=== PATIENT | female | born 1950 | race Caucasian/White ===

== ENCOUNTER 2016-08-30 06:42 | Observation (INO) | payer MEDICARE ==
[~2016-08-30] VITALS: Ht 167.6 cm; Wt 69.1 kg
[~2016-08-30 06:42] MED LIST: ASCO100016 PO; CALC1TAB12 PO; DIAZ10TA PO; ESTRTAB12 PO; GLUCTAB32 PO; LUMBAR BACK BRA1 MIS; ROBA500T PO; TRAM50TA PO; TRIA37.5 PO; TURM1CAP6 PO
[2016-08-30] MEDS ORDERED: HYDROmorphone HCL PF 2 MG/ML VIAL ONE (06:55)
[2016-08-30] MEDS ORDERED: ACETAMINOPHEN 1000 MG/100 ML VIAL IV ONE (06:55)
[2016-08-30] MEDS ORDERED: MIDAZOLAM HCL 2 MG/2 ML VIAL ONE (06:55)
[2016-08-30] MEDS ORDERED: KETAMINE HCL 500 MG/5 ML VIAL ONE (07:26)
[2016-08-30] MEDS ORDERED: SODIUM CHLORID 0.9% 500 ML IV PRN (07:30)
[2016-08-30] MEDS ORDERED: POVIDONE IODINE 5% (ANTISEPSIS KIT) 4 APPLICATIONS EACH NARE PRN (07:30)
[2016-08-30] MEDS ORDERED: CHLORHEXIDINE GLUCONATE 2 % 1 PACK (2 CLOTHS) TOPICAL PRN (07:30)
[2016-08-30] MEDS ORDERED: LACTATED RINGER'S 1000 ML IV PRN (07:30)
[2016-08-30] MEDS ORDERED: METOPROLOL TARTRATE 25 MG TAB PO PRN (07:30)
[2016-08-30] MEDS ORDERED: ceFAZolin 1,000 MG/NS 100 ML IV SCH ×2 (07:30)
[2016-08-30] MEDS ORDERED: LACTATED RINGER'S 1000 ML INJ 1,000 ML IV SCH (07:30)
[2016-08-30] MEDS ORDERED: INSULIN HUMAN REGULAR 1,000 UNITS/10 ML VIAL SQ PRN (07:30)
[2016-08-30 07:33] VITALS: BP 157/83; PULSE 74; RESP 18; TEMP 98.9; O2SAT 98
[2016-08-30] MEDS ORDERED: PROPOFOL 200 MG/20 ML AMP IV ONE (07:50)
[2016-08-30] MEDS ORDERED: ONDANSETRON HCL 4 MG/2 ML VIAL IV PUSH ONE (07:50)
[2016-08-30] MEDS ORDERED: LACTATED RINGER'S 1000 ML INJ 2,000 ML IV ONE (07:50)
[2016-08-30] MEDS ORDERED: PHENYLEPH/NS 1000 MCG/10 ML SYR IV ONE (07:50)
[2016-08-30] MEDS ORDERED: FAMOTIDINE 20 MG/2 ML VIAL ONE (08:07)
[2016-08-30] MEDS ORDERED: GENTAMICIN SULFATE 80 MG/2 ML VIAL ONE (08:12)
[2016-08-30] MEDS ORDERED: GELFOAM SIZE 100 ONE (08:12)
[2016-08-30] MEDS ORDERED: THROMBIN (TOPICAL) 5,000 UNIT VIAL ONE (08:12)
[2016-08-30] MEDS ORDERED: LIDOCAINE 2%/EPINEPHrine 1:100,000 30ML MDV ONE (08:15)
[2016-08-30] MEDS ORDERED: ceFAZolin INJ 1,000 MG VIAL IV ONE (12:20)
[2016-08-30 13:50] LABS: AUTOMATED NEUTROPHIL # 5.7 TH/MM3 (1.8-7.7); BASOPHIL % 0.2 % (0.0-2.0); EOSINOPHIL % 0.1 % (0.0-4.0); HEMATOCRIT 32.5 % (35.0-46.0); HEMO FLAGS DIFF FINAL; LYMPH % 8.9 % (9.0-44.0); LYMPHOCYTE # 0.6 TH/MM3 (1.0-4.8); MEAN CELL VOLUME 92.9 FL (80.0-100.0); MEAN CORPUSCULAR HEMOGLOBIN 31.5 PG (27.0-34.0); MONO % 1.4 % (0.0-8.0); NEUT % 89.4 % (16.0-70.0); PLATELET COUNT 150 TH/MM3 (150-450); WHITE BLOOD COUNT 6.3 TH/MM3 (4.0-11.0)
[2016-08-30 14:01] LABS: APTT (PATIENT) 28.8 SEC (24.3-30.1); PROTHROMBIN TIME - PATIENT 11.6 SEC (9.8-11.6)
[2016-08-30] MEDS ORDERED: DIAZEPAM 10 MG TAB PO PRN (14:30)
[2016-08-30] MEDS ORDERED: METHOCARBAMOL 500 MG TAB PO PRN (14:30)
[2016-08-30] MEDS ORDERED: BENZOCAINE 6 MG/MENTHOL 10 MG LOZENGE BUCCAL PRN (14:45)
[2016-08-30] MEDS ORDERED: SODIUM CHLORIDE 0.9% FLUSH 5 ML FLUSH IVF PRN (14:45)
[2016-08-30] MEDS ORDERED: traMADol HCL 50 MG TAB PO PRN (14:45)
[2016-08-30] MEDS ORDERED: HYDROmorphone HCL PF 1 MG/ML VIAL IV PRN (14:45)
[2016-08-30] MEDS ORDERED: NALOXONE HCL 0.4 MG/ML AMP IV PRN (14:45)
--- NOTE | 2016-08-30 14:46 | PD.OP ---
Operative Report Date of Surgery: Aug 30, 2016 Preoperative Diagnosis: (1) Cervical spinal stenosis (2) Cervical disc disease with myelopathy 1. Cervical spondylosis and degenerative disc disease 2. Severe C5 6 stenosis 3. Cervical myelopathy Postoperative Diagnosis: (1) Cervical spinal stenosis (2) Cervical disc disease with myelopathy 1. Cervical spondylosis and degenerative disc disease 2. Severe C5 6 stenosis 3. Cervical myelopathy Procedure: 1. C5 6 anterior cervical discectomy, resection posterior osteophyte-micro- technique 2. C5-6 anterior cervical interbody fusion with composite allograft bone 3. C5-6 anterior cervical instrumentation Anesthesia: Gen. endotracheal Surgeon: Jose Dixon Special Needs Tutor(s): Janeth Cristina Operation and Findings: Procedure in detail: The patient was brought into the operating room and positioned in supine position on the 3080 table with the head and neck in neutral position. Aaron catheter was placed. Lines were established by Anesthesia. Gen. endotracheal anesthesia was induced without difficulty, taking care not to significantly flex or extend the patient's neck during intubation and positioning. Leads for intraoperative neuro monitoring were placed and a baseline study obtained. All extremities were appropriately padded. The neck and upper chest were shaved with clippers and sterilely prepped and draped. Appropriate timeout procedure was performed with all personnel present and in agreement 1% Xylocaine with epinephrine was used for local infiltration over the incision site which was made transversely at the left C5 level and carried sharply down through the platysma muscle. The exposure was continued medial to the sternocleidomastoid muscle and carotid artery, and lateral to the trachea and esophagus. The prevertebral fascia was elevated away from the anterior longitudinal ligament with a Kitner sponge. The longus coli muscle on each side was elevated with the Holguin elevator. The self-retaining retractor was placed with the blades beneath the longus coli muscle on each side. The appropriate levels were confirmed with intraoperative C-arm and preoperative imaging studies. The microscope was brought into place and used for the remainder of the procedure including the closure. The 14 mm distraction pins were used as needed for gentle distraction during the procedure. The procedure was performed at the C5-6 level At the C5-6 level the anterior osteophyte was resected with the Leksell rongeur. The disc and annulus was incised with a 15 blade knife and discectomy performed with pituitary biopsy forceps and straight and angled curettes. The TPS drill with the 5 mm barrel bur was used to decorticate the endplates and removed the majority of the osteophyte along the anterior spinal canal as well as the right and left uncovertebral joint. The thin ligament dissector was used to free up the posterior annulus and ligament from the vertebral body margin. The remainder of the resection of the posterior annulus and ligament as well as the posterior osteophyte and bilateral uncovertebral joint was performed with the 2 and 3 mm thin footplate Kerrison rongeurs. A component of herniated nucleus pulposus was encountered posterior to the annulus and was lifted away from the thecal sac with the thickened ligament dissector and removed. Significant posterior osteophyte was encountered and extensively removed. The posterior vertebral bodies were undercut with the Kerrison rongeur and the TPS drill with the 4 mm jarad bur as needed to fully decompress the anterior spinal canal. The appropriate size 5 x 7 mm lordotic V G2 bone graft was then placed at each level with a good fit of the graft. The blunt nerve hook was used to probe beneath the bone graft to ensure that there was no impingement on the thecal sac or exiting nerve roots. The appropriate size Precision anterior cervical plate was then chosen and the bone screws were placed with the 14 mm fixed screws at the caudal most level and the 14 mm variable screws at the cephalad level of the decompression. The screws were firmly secured and the locking cams engaged. The entire construct was checked with intraoperative C-arm and felt to be satisfactory. The 10 Lao drain was brought out through a small incision in the left lower neck and secured to the skin with nylon suture and attached to sterile suction. The closure was performed with 3-0 Vicryl running for the platysma and interrupted for the subcutaneous closure, with 4-0 Vicryl running for the subcuticular closure. A dressing of sterile Mastisol, Steri-Strips, and Primapore dressing was placed. The patient was placed into a cervical collar, and taken to recovery room in stable condition. All counts were correct at the end of the case. Estimated blood loss was 500 cc No specimen was sent to pathology. Intraoperative neuro monitoring remained stable during the procedure. Jose Dixon MD Aug 30, 2016 14:46
--- NOTE | 2016-08-30 14:58 | RADRPT ---
EXAM DATE/TIME: 08/30/2016 09:43 [place] COMPARISON: No previous studies available for comparison. INDICATIONS : Post-op C5-C6 anterior cervical fusion. MEDICAL HISTORY : None. SURGICAL HISTORY : None. ENCOUNTER: Initial ACUITY: 1 day PAIN SCORE: Non-responsive. LOCATION: neck FINDINGS: A single single lateral view of the cervical spine is recorded digitally cross table using C-arm afte r placement of a C5-C6 intracervical plate. CONCLUSION: Intraoperative image. Prabhu Cedeño MD on August 30, 2016 at 14:55 Board Certified Radiologist. This report was verified electronically.
[2016-08-30] MEDS: D5-1/2 NS + KCL 20 MEQ INJ 1,000 ML IV SCH (15:30)
[2016-08-30] MEDS ORDERED: DO NOT ADM ANY ANTICOAGULANT DRUGS PRN (16:00)
[2016-08-30 16:45] VITALS: BP 139/75; PULSE 80; RESP 18; TEMP 97.8; O2SAT 98
[2016-08-30 20:00] VITALS: BP 149/80; PULSE 87; RESP 16; TEMP 96.9; O2SAT 95
[2016-08-30] MEDS ORDERED: HYDROCORTISONE 1% LOTN 120 ML BTL TOPICAL PRN (21:00)
[2016-08-30] MEDS: SODIUM CHLORIDE 0.9% FLUSH 5 ML FLUSH IVF SCH (21:00)
[2016-08-30] MEDS ORDERED: diphenhydrAMINE HCL 50 MG CAP PO PRN (21:00)
[2016-08-30] MEDS: ACETAMINOPHEN/HYDROcodone 325 MG/10 MG TAB PO PRN (23:57)
[2016-08-31 00:10] VITALS: BP 155/84; PULSE 90; RESP 16; TEMP 98.2; O2SAT 94
[2016-08-31] MEDS: D5-1/2 NS + KCL 20 MEQ INJ 1,000 ML IV SCH ×2 (00:31→08:39)
[2016-08-31 04:05] VITALS: BP 151/84; PULSE 77; RESP 16; TEMP 97.1; O2SAT 97
[2016-08-31] MEDS: ACETAMINOPHEN/HYDROcodone 325 MG/10 MG TAB PO PRN ×2 (04:36→13:29)
[2016-08-31 07:49] LABS: AUTOMATED NEUTROPHIL # 10.1 TH/MM3 (1.8-7.7); BASOPHIL % 0.1 % (0.0-2.0); HEMATOCRIT 37.8 % (35.0-46.0); HEMO FLAGS DIFF FINAL; LYMPH % 10.5 % (9.0-44.0); LYMPHOCYTE # 1.3 TH/MM3 (1.0-4.8); MEAN CELL VOLUME 93.3 FL (80.0-100.0); MEAN CORPUSCULAR HEMOGLOBIN 30.7 PG (27.0-34.0); MEAN CORPUSCULAR HGB CONC 32.9 % (32.0-36.0); MONO % 5.7 % (0.0-8.0); NEUT % 83.7 % (16.0-70.0); PLATELET COUNT 166 TH/MM3 (150-450); RED BLOOD COUNT 4.05 MIL/MM3 (4.00-5.30); RED CELL DISTRIBUTION WIDTH 12.1 % (11.6-17.2); WHITE BLOOD COUNT 12.1 TH/MM3 (4.0-11.0)
[2016-08-31 08:00] VITALS: BP 159/79; PULSE 74; RESP 18; TEMP 97.3; O2SAT 98
[2016-08-31 08:15] LABS: BICARBONATE 28.5 MEQ/L (21.0-32.0); POTASSIUM 3.6 MEQ/L (3.5-5.1)
[2016-08-31] MEDS: SODIUM CHLORIDE 0.9% FLUSH 5 ML FLUSH IVF SCH (08:34)
[2016-08-31] MEDS ORDERED: TRIAMTERENE/HCTZ 37.5 MG/25 MG TAB PO SCH (09:00)
[2016-08-31] MEDS ORDERED: CALCIUM/VITAMIN D 250 MG/125 U TAB PO SCH (09:00)
[2016-08-31 09:17] VITALS: O2SAT 98
[2016-08-31] MEDS ORDERED: HYDR-3583 PO (10:43)
[2016-08-31 12:00] VITALS: BP 161/79; PULSE 80; RESP 18; TEMP 96.6; O2SAT 99
--- NOTE | 2016-08-31 12:25 | HHI.NSPN ---
(Wellington Canales) History Chief Complaint: Some pain to the surgical site, sore throat and slight hoarseness. (Wellington Canales) Interval History 08/29: Patient with history of severe C5-6 stenosis with myelopathy. She presented to [facility] for a C5-6 ACDF. Post-operatively she went to a regular med/surg floor. 08/31: The patient is doing well this morning when seen with Dr Dixon. She has some tenderness to the surgical site. She still has pain to the back where she had the compression fracture. (Wellington Canales) System Review Comments Constitutional: Patient denies any fever or chills. HEENT: Patient does have some sore throat and slight hoarseness. Neck: Patient has some pain to the surgical site. Respiratory: Patient denies any shortness of breath or productive cough. She does state that she did have some coughing last night. Cardiovascular: Patient denies any chest pain, palpitations or irregular heartbeat. Gastrointestinal: Patient denies any abdominal pain, nausea, vomiting or bowel incontinence. Genitourinary: Patient denies any urinary incontinence. Musculoskeletal: Patient does complain of pain to where her compression fracture is. Neurological: Patient denies any headache, dizziness, numbness or tingling. ( Wellington Caanles) Exam Results Vital Signs Date Time Temp Pulse Resp B/P Pulse Ox O2 Delivery O2 Flow Rate FiO2 08/31/16 09:17 98 21 08/31/16 08:00 97.3 74 18 159/79 08/30/16 16:30 Nasal Cannula 2 Intake and Output 08/30/16 08/30/16 08/31/16 08:00 16:00 00:00 Intake Total 2500 ml 1209 ml Output Total 1460 ml 1360 ml Balance 1040 ml -151 ml (Wellington Canales) Physical Examination General: Awake & alert, readily interacts, normal affect, NAD. HEENT: Normocephalic, atraumatic. Neck: Midline cervical spine NTTP. Left anterior neck surgical incision mildly TTP, TIA drain to bulb suction w/serosanguinous drainage, dressing intact and w/ o any shadowing. Respiratory: CTAB w/o W/R/R, equal excursion, non-laboured, on RA. Cardiovascular: S1S2 w/RRR w/o M/G/R, radial & pedal pulses 2+ bilaterally, cap refill < 2 sec, no pedal edema. Gastrointestinal: Abdomen soft, nontender, positive bowel sounds. Musculoskeletal: CHUNG w/o difficulty. Ecchymosis of indeterminate ages noted to BUE. Back NTTP with light touch. Neurological: AAOx3 Speech clear & appropriate Sensation grossly intact to light touch all extremities Motor strength 5/5 to all flexion & extension muscle groups (Wellington Canales) Lab, Micro, Other Results Allergies Coded Allergies Type Severity Reaction Last Updated Verified Doxycycline Allergy Unknown 08/30/16 Yes Recent Impressions Cervical Spine X-Ray 08/30/16 0000 Signed Impressions: Service Date/Time: Tuesday, August 30, 2016 09:43 - CONCLUSION: Intraoperative image. Prabhu Cedeño MD 08/29//5/176/6///176/7/ 06:00 18:00 06:00 18:00 06:00 18:00 Intake Total 2500 ml 1209 ml 720 ml Output Total 1460 ml 1360 ml 1450 ml Balance 1040 ml -151 ml -730 ml Intake Oral 480 ml 720 ml IV Total 100 ml 729 ml Other 2400 ml Output Urine Total 950 ml 1350 ml 1450 ml Drainage Total 10 ml 10 ml Estimated Blood Loss 500 ml # Bowel Movements 0 0 Laboratory Tests Test 08/30/16 08/31/16 08/31/16 13:30 06:00 06:50 White Blood Count 6.3 TH/MM3 12.1 TH/MM3 Red Blood Count 3.50 MIL/MM3 4.05 MIL/MM3 Hemoglobin 11.0 GM/DL 12.5 GM/DL Hematocrit 32.5 % 37.8 % Mean Corpuscular Volume 92.9 FL 93.3 FL Mean Corpuscular Hemoglobin 31.5 PG 30.7 PG Mean Corpuscular Hemoglobin 34.0 % 32.9 % Concent Red Cell Distribution Width 12.0 % 12.1 % Platelet Count 150 TH/MM3 166 TH/MM3 Mean Platelet Volume 8.6 FL 9.7 FL Neutrophils (%) (Auto) 89.4 % 83.7 % Lymphocytes (%) (Auto) 8.9 % 10.5 % Monocytes (%) (Auto) 1.4 % 5.7 % Eosinophils (%) (Auto) 0.1 % 0.0 % Basophils (%) (Auto) 0.2 % 0.1 % Neutrophils # (Auto) 5.7 TH/MM3 10.1 TH/MM3 Lymphocytes # (Auto) 0.6 TH/MM3 1.3 TH/MM3 Monocytes # (Auto) 0.1 TH/MM3 0.7 TH/MM3 Eosinophils # (Auto) 0.0 TH/MM3 0.0 TH/MM3 Basophils # (Auto) 0.0 TH/MM3 0.0 TH/MM3 CBC Comment DIFF FINAL DIFF FINAL Differential Comment Prothrombin Time 11.6 SEC Prothromb Time International 1.0 RATIO Ratio Activated Partial 28.8 SEC Thromboplast Time Fibrinogen 223 mg/dL Blood Type O NEGATIVE Antibody Screen NEGATIVE Sodium Level 143 MEQ/L Potassium Level 3.6 MEQ/L Chloride Level 105 MEQ/L Carbon Dioxide Level 28.5 MEQ/L Anion Gap 10 MEQ/L Blood Urea Nitrogen 13 MG/DL Creatinine 0.81 MG/DL Estimat Glomerular Filtration 71 ML/MIN Rate Random Glucose 117 MG/DL Calcium Level 9.0 MG/DL Vital Signs Date Time Temp Pulse Resp B/P Pulse Ox O2 Delivery O2 Flow Rate FiO2 08/31/16 09:17 98 21 08/31/16 08:00 97.3 74 18 159/79 98 08/31/16 04:05 97.1 77 16 151/84 97 08/31/16 00:10 98.2 90 16 155/84 94 08/30/16 20:00 96.9 87 16 149/80 95 08/30/16 16:45 97.8 80 18 139/75 98 08/30/16 16:30 82 16 130/67 98 Nasal Cannula 2 08/30/16 15:45 98.8 78 16 135/65 99 Nasal Cannula 2 08/30/16 15:30 79 17 124/62 100 Nasal Cannula 2 08/30/16 15:15 81 16 133/69 99 Nasal Cannula 2 08/30/16 15:00 87 16 131/66 99 Nasal Cannula 2 08/30/16 14:45 89 16 132/65 99 Nasal Cannula 2 08/30/16 14:30 91 15 134/62 99 Nasal Cannula 2 08/30/16 14:25 98.7 92 14 138/68 99 Nasal Cannula 2 08/30/16 07:33 98.9 74 18 157/83 98 (Wellington Canales) Medical Decision Making Impression and Plan Impression: (1) Cervical spinal stenosis (2) Cervical disc disease with myelopathy 1. Cervical spondylosis and degenerative disc disease 2. Severe C5 6 stenosis 3. Cervical myelopathy POD #1 () s/p: 1. C5 6 anterior cervical discectomy, resection posterior osteophyte-micro- technique 2. C5-6 anterior cervical interbody fusion with composite allograft bone 3. C5-6 anterior cervical instrumentation Persistent mid back pain Plan: Advance diet to soft mechanical D/C TIA drain Will discharge home this afternoon (Wellington Canales) Attending Statement I have personally seen and examined the patient on the date of this note. Pertinent documentation and study results have been reviewed by the undersigned. I have personally developed the treatment plan and performed medical decision making. Agree with findings, exam, and treatment plan as noted above. Patient eating breakfast comfortably. No significant dysphagia or hoarseness of voice. Incision dry and intact. Mild drain output. Upper and lower extremity sensory motor exam normal Discussed with patient Discharge home today Signs and symptoms to watch for discussed (Jose Dixon MD) Wellington Canales Aug 31, 2016 12:25 Jose Dixon MD Aug 31, 2016 18:14
--- NOTE | 2016-08-31 13:11 | HHI.DCPOC ---
Discharge Care Plan Diagnosis: (1) Cervical spinal stenosis (2) Cervical disc disease with myelopathy Your Health Problems Are: Incision/Drains Loss of Movements Goals to Promote Your Health * To prevent worsening of your condition and complications * To maintain your health at the optimal level Directions to Meet Your Goals Take your medications as prescribed Follow your dietary instruction Follow activity as directed Keep your appointments as scheduled Take your immunizations and boosters as scheduled If your symptoms worsen call your PCP, if no PCP go to Urgent Care Center or Emergency Room Smoking is Dangerous to Your Health. Avoid second hand smoke Call the 24-hour hour crisis hotline for domestic abuse at Wear the cervical collar when active. When in bed or sitting still you may have the collar off. You may drive using your mirrors but no turning of your head. No lifting more than 5 pounds, pulling or other strenuous activity. Keep the dressing to the surgical site clean & dry for the next 7 days. You may shower but cover it with plastic to prevent it from getting wet. If it does get wet dry it gently with a hairdryer. After the 7 days you may remove the outer dressing but leave the steri-strips in place. Let them fall off as you shower. Avoid any products containing aspirin or NSAIDs (ibuprofen, naproxen, Naprosyn, Aleve, Advil, Motrin, etc.). Wellington Canales Aug 31, 2016 13:11 Jose Dixon MD Aug 31, 2016 18:12
--- NOTE | 2016-08-31 13:18 | HHI.DS ---
Wellington Canales [facility] 08/31/16 1318: Discharge Summary Admission Date Aug 30, 2016 at 14:39 Discharge Date: Aug 31, 2016 Admitting Diagnosis (1) Cervical spinal stenosis Diagnosis: Principal ICD Code: M48.02 (2) Cervical disc disease with myelopathy Diagnosis: Secondary ICD Code: M50.00 Procedures : 1. C5 6 anterior cervical discectomy, resection posterior osteophyte-micro- technique 2. C5-6 anterior cervical interbody fusion with composite allograft bone 3. C5-6 anterior cervical instrumentation CBC/BMP: 08/31/16 0650 08/31/16 0600 Significant Findings Laboratory Tests Test 08/30/16 08/31/16 08/31/16 13:30 06:00 06:50 Red Blood Count 3.50 MIL/MM3 (4.00-5.30) Hemoglobin 11.0 GM/DL (11.6-15.3) Hematocrit 32.5 % (35.0-46.0) Neutrophils (%) (Auto) 89.4 % 83.7 % (16.0-70.0) (16.0-70.0) Lymphocytes (%) (Auto) 8.9 % (9.0-44.0) Lymphocytes # (Auto) 0.6 TH/MM3 (1.0-4.8) Fibrinogen 223 mg/dL (227-377) Estimat Glomerular Filtration 71 ML/MIN (>89) Rate Random Glucose 117 MG/DL (74-106) White Blood Count 12.1 TH/MM3 (4.0-11.0) Neutrophils # (Auto) 10.1 TH/MM3 (1.8-7.7) Hospital Course Patient presented to [facility] on to have a C5-6 ACDF due to severe cervical stenosis and myelopathy. Post-operatively she was admitted to a regular room. She did well while hospitalised and was tolerating a diet, ambulating with standby assistance, and her pain was controlled. She was therefore discharged home the afternoon of . Pt Condition on Discharge: Good Discharge Disposition: Discharge Home Discharge Instructions DIET: Follow Instructions for: Soft Diet (for the next couple weeks) ACTIVITIES You can perform: Weight Bearing As Toribio, Shower/Bath Activities to Avoid: Lifting/Bending, Strenuous Activity Additional Information Wear the cervical collar when active. When in bed or sitting still you may have the collar off. You may drive using your mirrors but no turning of your head. No lifting more than 5 pounds, pulling or other strenuous activity. Keep the dressing to the surgical site clean & dry for the next 7 days. You may shower but cover it with plastic to prevent it from getting wet. If it does get wet dry it gently with a hairdryer. After the 7 days you may remove the outer dressing but leave the steri-strips in place. Let them fall off as you shower. Avoid any products containing aspirin or NSAIDs (ibuprofen, naproxen, Naprosyn, Aleve, Advil, Motrin, etc.). Jose Dixon MD 08/31/16 1815: Discharge Summary CBC/BMP: 08/31/16 0650 08/31/16 0600 Attending Statement Agree with above discharge summary Wellington Canales Aug 31, 2016 13:18 Jose Dixon MD Aug 31, 2016 18:15
== END 2016-08-31 17:18 | disposition home or self-care (01) ==
LOC: HSDC 06:42 → HSDI 14:39 → N06A 16:47
PROVIDERS: ADMIT Neurological Surgery; ATTEND Neurological Surgery
DX: M48.02 Spinal stenosis, cervical region (principal); M50.022 Cervical disc disorder at C5-C6 level with myelopathy; M47.12 Other spondylosis with myelopathy, cervical region; M25.78 Osteophyte, vertebrae; Z88.1 Allergy status to other antibiotic agents
CPT/HCPCS: 00600; 20930; 22551; 22845; 72020; 76000; 80048; 85025; 85384; 85610; 85730; 86850; 86900; 86901; 94150; 97162; C1713; G0378; G8987; G8988; J0131; J0690; J1170; J1580; J2250; J2370; J2405; J3010; J3480; J7120; L0150; L0172